=== PATIENT | female | born 1940 | race Caucasian/White ===

== ENCOUNTER 2021-07-08 06:32 | Inpatient (IN) ==
[2021-07-08] MEDS ORDERED: Heparin 1,000 UNITS/500 mL 500 ML ONE ×2 (07:06→07:43)
[2021-07-08] MEDS ORDERED: CeFAZolin Syr 2,000MG/20 ML 2,000 MG/20 ML SYRINGE IVPB ONE (07:06)
[2021-07-08] MEDS ORDERED: Ringers Solution, Lactated 1,000 ML IVC SCH (07:15)
[2021-07-08] MEDS ORDERED: Acetaminophen IV 1,000 MG/100 ML BAG IVPB ONE (07:20)
[2021-07-08] MEDS ORDERED: *HR* FentaNYL (PF) 100 MCG/2 ML VIAL IVP PRN (07:20)
[2021-07-08] MEDS ORDERED: Ondansetron 4 MG/2 ML VIAL IVP PRN ×2 (07:20→12:46)
[2021-07-08] MEDS ORDERED: NiCARdipine 2.5 MG/10 ML Syringe IVPB ONE (07:37)
[2021-07-08] MEDS ORDERED: *HR* Vasopressin 20 UNIT/ML VIAL ONE (07:37)
[2021-07-08] MEDS ORDERED: Protamine Sulfate 50 MG/5 ML VIAL IVP ONE (07:42)
[2021-07-08] MEDS ORDERED: *HR* Succinylcholine 200 MG/10 ML VIAL IVP ONE (07:48)
[2021-07-08] MEDS ORDERED: *HR* Rocuronium Bromide 50 MG/5 ML VIAL ONE (07:48)
[2021-07-08] MEDS ORDERED: *HR* FentaNYL (PF) 100 MCG/2 ML VIAL ONE (07:48)
[2021-07-08] MEDS ORDERED: Lidocaine -MPF 2% 2 ML VIAL ONE ×2 (07:48→09:59)
[2021-07-08] MEDS ORDERED: *HR* Propofol 200 MG/20 ML VIAL IVP ONE (07:48)
[2021-07-08] MEDS ORDERED: Ondansetron 4 MG/2 ML VIAL ONE (07:48)
[2021-07-08] MEDS ORDERED: Lidocaine HCL 4 ML Topical Solution (Laryng-O-Jet Kit Sterile Pak) TP ONE (07:48)
[2021-07-08] MEDS ORDERED: EPHEDrine 50 MG/ML VIAL ONE (07:53)
[2021-07-08] MEDS ORDERED: ceFAZolin 1,000 MG, Sodium Chloride IRRigation 1,000 ML IR ONE (08:15)
[2021-07-08] MEDS ORDERED: *HR* Phenylephrine 10 MG/ML VIAL ONE (08:44)
[2021-07-08] MEDS ORDERED: *HR* HYDROMORPHONE 2 MG/ML VIAL ONE (11:27)
[2021-07-08] MEDS ORDERED: Nitroglycerin 0.4 MG TAB.SUBL SL PRN (12:46)
[2021-07-08] MEDS ORDERED: *HR* Labetalol 20 MG/4 ML SYRINGE IVP PRN (12:46)
[2021-07-08] MEDS ORDERED: *HR* LORazepam 0.5 MG TABLET PO PRN (12:46)
[2021-07-08] MEDS ORDERED: Naloxone 0.4 MG/ML INJ IVP PRN (12:46)
[2021-07-08] MEDS ORDERED: Acetaminophen 325 MG TABLET PO PRN (12:46)
[2021-07-08] MEDS ORDERED: *HR* HYDROcodone/Acet 5/325 mg TABLET PO PRN (12:46)
[2021-07-08] MEDS: CeFAZolin 2 GM/100 ML BAG IVPB SCH ×2 (15:54→23:41)
[2021-07-08] MEDS: Gabapentin 300 MG CAPSULE PO SCH (20:21)
[2021-07-08] MEDS ORDERED: 0.9 % Sodium Chloride 500 ML IVC ONE (20:30)
[2021-07-08] MEDS ORDERED: Temazepam 15 MG CAPSULE PO ONE (22:32)
[2021-07-09 04:59] LABS: Basophils % 0.1 %; Immature Granulocytes % 0.2 % (0-4); Lymphocytes # 0.9 K/mcL (0.6-4.6); Lymphocytes % 10.2 %; Mean Corpuscular HGB Conc 32.7 g/dL (31.6-35.5); Mean Corpuscular Hemoglobin 30.7 pg (28.0-33.3); Mean Corpuscular Volume 93.8 fL (83.0-100.0); Mean Platelet Volume 10.1 fL (9.4-12.4); Monocytes # 0.4 K/mcL (0.0-1.3); Monocytes % 4.4 %; Neutrophils # 7.8 K/mcL (1.6-8.9); Platelet Count 169 K/mcL (140-400); Red Blood Count 3.52 M/mcL (3.82-4.97); Red Cell Distribution Width 13.1 % (11.5-14.5); Segmented Neutrophils % 85.1 %; White Blood Count 9.1 K/mcL (4.3-11.1)
[2021-07-09 05:00] LABS: Hemoglobin 10.8 g/dL (11.5-15.4)
[2021-07-09 05:14] LABS: BUN/Creatinine Ratio 16 (6-26); Blood Urea Nitrogen 8 mg/dL (8-23); Calcium 8.7 mg/dL (8.6-10.3); Carbon Dioxide 28 mEq/L (23-29); Chloride 106 mEq/L (98-107); Glucose 108 mg/dL (70-105); Osmolality,Calculated 287 (280-300); Sodium 139 mEq/L (136-145); eGFR For African Americans > 60 (> 60); eGFR For Non-African Americans > 60 (> 60)
[2021-07-09 07:16] VITALS: BP 124/54; TEMP 97.8; O2SAT 96
[2021-07-09] MEDS: Gabapentin 300 MG CAPSULE PO SCH (07:56)
[2021-07-09 08:34] VITALS: PULSE 96
[2021-07-09] MEDS ORDERED: Ubidecarenone [Co Q-10] 10 MG Capsule PO SCH (09:00)
[2021-07-09] MEDS ORDERED: atenoloL 50 MG TABLET PO SCH (09:00)
[2021-07-09] MEDS ORDERED: Vitamin B Complex/Vit C/Vit E 1 EACH TABLET PO SCH (09:00)
[2021-07-09] MEDS ORDERED: Lactobacillus 1 EACH CAP.SPRINK PO SCH (09:00)
[2021-07-09] MEDS ORDERED: Aspirin Enteric Coated 81 MG Tablet PO SCH (09:00)
[2021-07-09] MEDS: CeFAZolin 2 GM/100 ML BAG IVPB SCH (09:45)
== END 2021-07-09 13:35 | disposition home or self-care (01) | DRG 39 ==
LOC: SAMDAY 06:32 → 2NNU 12:41
PROVIDERS: ADMIT Surgery Vascular Surgery; ATTEND Surgery Vascular Surgery